=== PATIENT | female | born 1965 | race Caucasian/White ===

== ENCOUNTER 2016-07-10 11:54 | Emergency (ER) | payer MEDICAID ==
[~2016-07-10] VITALS: Ht 165.1 cm; Wt 88.0 kg
[~2016-07-10 11:54] MED LIST: ASPIRIN81 M1 PO; ATIVAN0.5 MG PO; BACTRIM DS 800/1 TAB PO; CENTRUM1 TA1 PO; ENALAPRIL10 M1 PO; GLIPIZIDE10 M2 PO; GLUCOPHAGE500 MG PO; THERAGRAN1 TA2 PO; ZOCOR40 MG PO; ZOFRAN ODT4 MG PO; [UNRECOGNIZED DRUG - REMARK]
[2016-07-10 12:03] VITALS: BP 180/77
--- NOTE | 2016-07-10 15:18 | NUR ---
Patient ambulated to bed 08.
--- NOTE | 2016-07-10 16:08 | NUR ---
PT AMBULATE TO RESTROOM. URINE CUP PROVIDED.
--- NOTE | 2016-07-10 16:25 | NUR ---
51/F BIB DAUGHTER FOR FEVER X1 DAY WITH EPIGASTRIC PAIN AND GEN WEAKNESS. DENIES N/V/D; SKIN IS PINK/WARM/DRY; AAOX4 WITH EVEN AND STEADY GAIT; LUNGS CLEAR BL; HR EVEN AND REGULAR; PT DENIES ANY FEVER, CP, SOB, OR COUGH AT THIS TIME; PATIENT STATES PAIN OF 8/10 AT THIS TIME; VSS; PATIENT POSITIONED FOR COMFORT; HOB ELEVATED; BEDRAILS UP X2; BED DOWN. ER MD MADE AWARE OF PT STATUS.
--- NOTE | 2016-07-10 16:35 | NUR ---
KIAN Chang evaluating patient at bedside.
[2016-07-10] MEDS ORDERED: NACL 0.9% 500 ML IV ONE (16:40)
[2016-07-10] MEDS ORDERED: ONDANSETRON 4 MG/2 ML VIAL IVP ONE (16:45)
[2016-07-10] MEDS ORDERED: HYDROmorphone 1 MG/ML AMP IVP ONE (16:45)
--- NOTE | 2016-07-10 16:58 | NUR ---
Patient going to XRAY via wheelchair per tech.
--- NOTE | 2016-07-10 17:05 | NUR ---
Patient back from XRAY via wheelchair per tech.
--- NOTE | 2016-07-10 18:41 | NUR ---
Patient to CT [facility].
--- NOTE | 2016-07-10 19:10 | NUR ---
[facility]
--- NOTE | 2016-07-10 20:25 | NUR ---
Patient discharged with v/s stable. Written and verbal after care instructions given and explained. Patient alert, oriented and verbalized understanding of instructions. Ambulatory with steady gait. All questions addressed prior to discharge. ID band removed. Patient advised to follow up with PMD. Rx of GAIATUSSIN ac 100-10MG/5 ML given. Patient educated on indication of medication including possible reaction and side effects. Opportunity to ask questions provided and answered.
[2016-07-10 21:30] VITALS: BP 157/76
== END 2016-07-10 20:25 | disposition home or self-care (01) ==
LOC: MED 11:54
DX: R09.1 Pleurisy (principal); B34.9 Viral infection, unspecified; J45.909 Unspecified asthma, uncomplicated; E11.9 Type 2 diabetes mellitus without complications; I10 Essential (primary) hypertension
CPT/HCPCS: 36415; 71020; 71275; 80053; 83690; 84484; 85025; 85379; 87804; 93005; 96361; 96374; 96375; 99285; J1170; J2405; J7030; Q9967

== ENCOUNTER 2020-06-20 08:45 | Emergency (ER) | payer MEDICAID, OTHER ==
[~2020-06-20] VITALS: Ht 162.6 cm; Wt 84.4 kg
[~2020-06-20 08:45] MED LIST changes: +ASPI-1822 PO; -ASPIRIN81 M1 PO; +ATI.5 PO; -ATIVAN0.5 MG PO; -BACTRIM DS 800/1 TAB PO; -CENTRUM1 TA1 PO; -ENALAPRIL10 M1 PO; +GLIP10TA12 PO; -GLIPIZIDE10 M2 PO; -GLUCOPHAGE500 MG PO; +METF500T PO; +MULT-2000 PO; +SIMV40TA1 PO; +THE PO; -THERAGRAN1 TA2 PO; +VAS10 PO; -ZOCOR40 MG PO; -ZOFRAN ODT4 MG PO; -[UNRECOGNIZED DRUG - REMARK]
[2020-06-20 08:47] VITALS: BP 135/84
--- NOTE | 2020-06-20 09:03 | NUR ---
pt ambulated to bed 8 with steady gait
--- NOTE | 2020-06-20 09:07 | NUR ---
DR IVAN AT BEDSIDE
--- NOTE | 2020-06-20 09:11 | NUR ---
55 Y/O FEMALE C/O MOUTH PAIN & HEADACHE , RUNNY NOSE, CONGESTION, COUGH X 5 DAYS. BLOOD SUGAR 115, BP 135/84 AT THIS TIME. PT RATES MOUTH PAIN 10/10 AND STATES SHE TOOK ORAJEL AND MOUTH PAIN LIQUID GEL WITH NO RELIEF. PT STATES SHE IS CONGESTED AND C/O HEADACHE IN FRONT OF HEAD. SHE STATES SHE HAS A SMALL PRODUCTIVE COUGH WITH GREEN MUCUS. PT DENIES N/V/D/CP/SOB/LOSS OF TASTE SMELL OR EXPOSURE TO COVID. PT HAS YELLOW PATCHES ON ROOF OF MOUTH. PT WEARS DENTURES AND STOPPED WEARING THEM WHEN THE PAIN STARTED X5 DAYS AGO. PT IS A/O X4 WITH EVEN AND UNLABORED RESPIRATIONS. PT IS LAYING IN BED WITH BED IN LOWEST POSITION, BRAKES LOCKED X1 SIDERAIL UP. PMH: DM, HTN, HLD,ASTHMA NKA
[2020-06-20] MEDS ORDERED: HYDROcodone/APAP 5/325 MG 1 TAB TAB PO ONE (09:15)
[2020-06-20] MEDS ORDERED: NAPR-1703 PO (09:27)
[2020-06-20] MEDS ORDERED: ACET-8386 PO (09:27)
[2020-06-20] MEDS ORDERED: ACYC400T PO (09:27)
[2020-06-20 09:41] VITALS: BP 135/84
--- NOTE | 2020-06-20 09:41 | NUR ---
Patient discharged with v/s stable. Written and verbal after care instructions given and explained. Patient alert, oriented and verbalized understanding of instructions. Ambulatory with steady gait. All questions addressed prior to discharge. ID band removed. Patient advised to follow up with PMD. Rx of NORCO, ACYCLOVIR & NAPROXEN given. Patient educated on indication of medication including possible reaction and side effects. Opportunity to ask questions provided and answered.
== END 2020-06-20 09:41 | disposition home or self-care (01) ==
LOC: MED 08:45
DX: K12.1 Other forms of stomatitis (principal); J45.909 Unspecified asthma, uncomplicated; E11.9 Type 2 diabetes mellitus without complications; I10 Essential (primary) hypertension; E78.5 Hyperlipidemia, unspecified; Z79.84 Long term (current) use of oral hypoglycemic drugs; Z79.82 Long term (current) use of aspirin; Z79.899 Other long term (current) drug therapy
CPT/HCPCS: 81002; 82948; 99283